=== PATIENT | female | born 1940 | race Caucasian/White ===

== ENCOUNTER 2021-10-18 15:11 | Emergency (ER) | payer MEDICARE, OTHER ==
[~2021-10-18] VITALS: Ht 167.6 cm; Wt 111.1 kg
[~2021-10-18 15:11] MED LIST: CLONIDINE HCL0.1 MG PO; DIOVAN160 MG PO; LASIX40 MG PO; METOPROLOL TART50 MG PO; SPIRONOLACTONE25 MG PO; ZOLOFT50 MG PO
== END 2021-10-18 16:25 | disposition home or self-care (01) ==
LOC: ER 15:22
DX: R25.2 Cramp and spasm (principal); M79.601 Pain in right arm; Z86.73 Personal history of transient ischemic attack (TIA), and cerebral infarction without residual deficits; Z85.3 Personal history of malignant neoplasm of breast
CPT/HCPCS: 36415; 70450; 82948; 99284

== ENCOUNTER → 2022-04-24 | Outpatient (CLI) | payer MEDICARE, OTHER | LOC: US 08:56 | PROVIDERS: ATTEND Internal Medicine Gastroenterology | DX: R94.5 Abnormal results of liver function studies (principal) | CPT/HCPCS: 76705 ==